=== PATIENT | female | born 1985 | race Caucasian/White ===

== ENCOUNTER → 2024-07-12 16:54 | Outpatient (REF) | payer OTHER, SELFPAY | LOC: PNTC 16:54 | PROVIDERS: ATTENDING PHYSICIAN Obstetrics & Gynecology | DX: Z36.0 Encounter for antenatal screening for chromosomal anomalies (principal); Z36.82 Encounter for antenatal screening for nuchal translucency | CPT/HCPCS: 76801; 76813 ==

== ENCOUNTER → 2024-08-09 16:25 | Outpatient (REF) | payer OTHER, SELFPAY | LOC: PNTC 16:25 | PROVIDERS: ATTENDING PHYSICIAN Obstetrics & Gynecology | DX: O09.519 Supervision of elderly primigravida, unspecified trimester (principal); O09.819 Supervision of pregnancy resulting from assisted reproductive technology, unspecified trimester; O99.210 Obesity complicating pregnancy, unspecified trimester | CPT/HCPCS: 76805 ==

== ENCOUNTER → 2024-08-17 13:36 | Outpatient (REF) | payer OTHER, SELFPAY | LOC: PNTC 13:36 | PROVIDERS: ATTENDING PHYSICIAN Obstetrics & Gynecology | DX: O46.92 Antepartum hemorrhage, unspecified, second trimester (principal) | CPT/HCPCS: 76815 ==

== ENCOUNTER → 2024-09-07 15:56 | Outpatient (REF) | payer OTHER, SELFPAY | LOC: PNTC 15:56 | PROVIDERS: ATTENDING PHYSICIAN Obstetrics & Gynecology | DX: O09.529 Supervision of elderly multigravida, unspecified trimester (principal) | CPT/HCPCS: 76811; 76817 ==

== ENCOUNTER → 2024-10-28 16:21 | Outpatient (REF) | payer OTHER, SELFPAY | LOC: PNTC 16:21 | PROVIDERS: ATTENDING PHYSICIAN Obstetrics & Gynecology | DX: O09.529 Supervision of elderly multigravida, unspecified trimester (principal); O09.819 Supervision of pregnancy resulting from assisted reproductive technology, unspecified trimester; O99.210 Obesity complicating pregnancy, unspecified trimester | CPT/HCPCS: 76816 ==

== ENCOUNTER 2024-11-16 16:20 | Observation (INO) | payer OTHER, SELFPAY ==
[2024-11-16 12:42] LABS: Glucose - Point of Care 94 mg/dl (70-99)
[2024-11-16 12:45] VITALS: BP 123/81
[2024-11-16 12:56] VITALS: BMI 36.3
[2024-11-16 13:00] VITALS: BP 111/69
--- NOTE | 2024-11-16 13:41 | ED.GENMED ---
History of Present Illness
General
Chief Complaint: Fainting/Passed Out
Source: patient
Exam Limitations: none
Time Seen by Provider: 11/16/24 13:14
Nursing documentation reviewed up to this point in time: agreed with
History of Present Illness
History of Present Illness:
Patient is a 39-year-old at approximately 30 weeks gestation who presents to the emergency department following syncopal episode. Patient states that she was setting up for graduation at her school when a folding chair closed on her left thumb,
pinching the skin. She noted immediate pain in her left thumb and was walking to get some ice when she began feeling lightheaded & dizzy, as if she was going to pass out. Patient apparently than suffered a syncopal event falling forward slightly and
striking her nose on a metal fence. She is unsure if she fell onto her abdomen.
Patient reports feeling very nervous regarding the safety of the baby. However she denies any headache, neck pain, chest pain, or shortness of breath. She denies any abdominal pain, vaginal bleeding, or loss of fluids. She has no visual changes,
current lightheadedness/dizziness, or numbness/tingling in extremities.
Patient has a hx of 5 prior spontaneous abortions.
Past History
Past History
ED Past Medical History: None
ED Past Surgical History: Other
Social History
Tobacco: Non-smoker
Personal:
Living: with family
Employment: Other
Family History
Family History: Other
Review of Systems
Review of Systems
Allergies reviewed?: Yes
All Other Systems: ROS reviewed and negative except as documented in HPI and ROS
Phy Exam
Physical Exam
Physical Exam:
Vitals: Patient's vital signs are stable. Afebrile
General: Patient is well appearing, no acute distress
Skin: 0.5 cm laceration to nasal bridge.
Head: Normocephalic, atraumatic
Eyes: Sclera nonicteric. EOMs intact. No nystagmus.
Nose: Small laceration to nasal bridge, as above with mild reproducible tenderness. No evidence of septal hematoma or obvious nasal deformity.
Throat: Protecting airway
Neck: Normal ROM, no cervical spine tenderness, no meningismus
Cardiac: Regular rate and rhythm, no murmurs.
Pulm: Normal respiratory effort, no wheezes, rales, rhonchi heard on exam
.
Abdomen: Gravid abdomen. Soft and nontender.
Extremities: Edema and ecchymosis of left thumb with tenderness of phalanx and near MCP joint. No obvious deformity of left 1st digit. She has full ability to adduct/abduct left and flex/extend at IP and MCP joints. Capillary refill wnl.
Neuro: AAOx3. CN II-XII intact. No focal neurologic deficits. Fluid speach and steady gait.
Psychiatric: Normal affect.
Course
Orders/Labs/Results
Orders:
Orders
11/16/24 13:40
Electrocardiogram (*1) Urgent
Reason for Study: Syncope
11/16/24 13:41
EKG- Treatment ONCE
11/16/24 13:51
Fetaldex Urgent
Complete Blood Count/With Diff Urgent
Comprehensive Metabolic Panel Urgent
Fibrinogen Urgent
PTT Urgent
Prothrombin Time Urgent
11/16/24 15:04
Protein/Creat Ratio (Random) Urgent
Date Specimen was Collected: 11/16/24
Time Specimen was Collected: 14:55
11/16/24 15:18
Orthostatic VS- Treatment ONCE
11/16/24 15:34
0.9% Sodium Chloride 1000 ml [Nss] 1,000 ml IV BOLUS
11/16/24 15:55
Add On- LAB Urgent
Tests Added?: UA
Abnormal Lab Results
11/16/24
13:51
WBC 11.8 H 10^3/uL
(4.8-10.8)
RBC 4.04 L 10^6/uL
(4.20-5.40)
Hgb 11.5 L g/dL
(12.0-16.0)
Hct 35.2 L %
(37.0-47.0)
MCHC 32.7 L g/dL
(33.0-37.0)
MPV 10.7 H fL
(7.4-10.4)
Abs Immat Gran (auto) 0.2 H 10^3/uL
(0-0.05)
Absolute Neuts (auto) 9.8 H 10^3/uL
(1.4-6.5)
Absolute Lymphs (auto) 1.1 L 10^3/uL
(1.2-3.4)
Immature Gran % 2.0 H %
(0-0.5)
Neutrophils % 83.1 H %
(42.2-75.2)
Lymphocytes % 9.5 L %
(20.5-51.1)
Fibrinogen 675 H MG/DL
(199-459)
Chloride 108 H mmol/L
(98-107)
Glucose 108 H mg/dl
(70-99)
AST 137 H U/L
(14-36)
ALT 335 H U/L
(0-35)
Alkaline Phosphatase 169 H U/L
(38-126)
11/16/24 13:51
11/16/24 13:51
Vital Signs
Initial and Last Documented VS:
Initial Vital Signs
Temp Pulse Resp BP Pulse Ox
98.2 F 84 20 123/81 100
11/16/24 12:45 11/16/24 12:45 11/16/24 12:45 11/16/24 12:45 11/16/24 12:45
Last Documented Vital Signs
Temp Pulse Resp BP Pulse Ox
98.4 F 76 18 120/72 98
11/16/24 16:36 11/16/24 16:36 11/16/24 16:36 11/16/24 16:36 11/16/24 15:15
Procedures
Laceration Closure
Nasal bridge:
Status of Wound: clean
Size of Wound in cm: 0.5
Description of Wound Edges: surrounded by abrasion
Preparation: cleaned with saline
Revision/Debridement: routine- no revision
Wound exploration: explored to base- no FB
Type of Closure: Dermabond-skin glue
MDM/Problems Addressed
Differential Diagnosis Includes:
Not limited to: vasovagal syncope, orthostatic hypotension, cardiac arrhythmia, placental abruption, preeclampsia, eclampsia, etc
MDM/Problems Addressed:
39 y.o at approximately 30 weeks gestation presenting following syncopal event after minor injury to left hand. She sustained small laceration to her nasal bridge and a contusion to left thumb. Unsure if there was any abdominal trauma although
she denies any abdominal pain, vaginal bleeding or loss of fluids. heart tones obtained in triage, as well as INSTRUCTIONAL DESIGNER consult.
Vitals and exam as above. Patient A&O x 3. Minor laceration to nasal bridge noted which was irrigated with nss and closed using dermabond. No other evidence of head or neck trauma. Left thumb with obvious ecchymosis and edema although no obvious
deformity w/ excellent ROM. RUE neurovascularly intact. No other evidence of extremity injuries. Gravid abdomen, soft and nontender. No neuro deficits noted.
Overall impression is likely vasovagal syncope secondary to pain from minor hand injury. Patient was found to be mildly orthostatic, so orthostasis would also be a consideration. Do not feel CT imaging of head indicated. Patient declines tdap
booster - aware of risks. Discussed xray of left thumb to rule out potential fx although patient declines and will continue to monitor. She is aware that we may be missing fx by holding off on xray imaging. Patient give IVF. Sent for OB US and
attached to monitorign in ED.
Labs sent in triage, as ordered by OBGYN. CBC noted. Chemistry reveals somewhat remarkably elevated transaminases. Patient does report recent pruritus of hands/feet - cholestasis of may be on differential although unable to exclude
abnormal presentation of preeclampsia. Patient normotensive at this time. Discussed w/ OBKEL, Dr. Orellana who was down to evaluate pt at bedside. Per INSTRUCTIONAL DESIGNER - US reassuring and monitoring normal. Given abnormal LFTs and positive KB screen,
patient will be admitted overnight for continued monitoring, further workup. Patient accepted to OBGYN service in stable condition and transferred to [facility].
Chronic conditions affecting care:
Hx multipe spontaneous miscarriages
Acute Exacerbation and/or Progression of Chronic Illness:
N/A
*Pulse Oximetry
Patient hypoxic: no
*EKG
Interpreted by ED Provider?: Yes
EKG Intrepretation Date: 11/16/24
Interpretation: normal
Comparison EKG: no comparison EKG present
Heart Rate: 73
Rate: normal
Rhythm: sinus
[place]: normal axis
Interval: normal QT interval
QRS Pattern: normal QRS
Ischemia: no ischemia
*[employer] Specialist Interpretation
Rate: normal
Interpretation: normal
Heart Rate: 80
Rhythm: sinus
*Critical Care Note
Total Time (30-74mins, 75-104mins- exclusive of procedures): Not Applicable
Patient Management
Discussion with other providers: [employer] (Case discussed w/ OBKEL)
Escalation/DeEscalation of care consider admission/obs:
Admit to [facility] for monitoring
ED Attending Note
-
Portions of this chart may have been created with voice recognition software.� Occasional wrong word or��sound alike� substitutions may have occurred due to the inherent limitations of voice recognition software.
Discharge Plan
Departure
Patient Disposition: [facility]
Date of Disposition: 11/16/24
Time of Disposition: 16:01
Admit to doctor: Dr. Orellana
Presentation/result/management discussed w/ accepting MD/DO: OBGYN
Discharge Problem:
Vasovagal syncope, Laceration of nose, Injury of left thumb
Interventions
Interventions:
*Risk Screen - Suicide Last Done: 11/16/24 12:45
*General Assessment Last Done: 11/16/24 12:45
*Neglect/Abuse Screening Last Done: 11/16/24 12:56
*ED- Fall Risk Assessment Last Done: 11/16/24 12:56
*ED COVID-19 Vaccine History Last Done: 11/16/24 12:56
*Nursing Disposition Last Done: 11/16/24 16:06
ED- Cardiac Assessment Last Done: 11/16/24 12:56
ED- Neurological Assessment Last Done: 11/16/24 12:56
Discharge Date and Time
Discharge Date/Time: 11/16/24 16:10
[2024-11-16 14:00] VITALS: BP 110/76
[2024-11-16 14:19] LABS: % Basophils 0.3 % (0-2); % Eosinophils 0.3 % (0-6); % Lymphocytes 9.5 % (20.5-51.1); % Monocytes 4.8 % (1.7-9.3); % Neutrophils 83.1 % (42.2-75.2); Absolute Immature Granulocytes 0.2 10^3/uL (0-0.05); Absolute Lymphocytes 1.1 10^3/uL (1.2-3.4); Absolute Monocytes 0.6 10^3/uL (0.1-0.6); Absolute Neutrophils 9.8 10^3/uL (1.4-6.5); Hematocrit 35.2 % (37.0-47.0); Hemoglobin 11.5 g/dL (12.0-16.0); Mean Corp Hgb Conc. 32.7 g/dL (33.0-37.0); Mean Corpuscular Hgb 28.5 pg (27.0-31.0); Mean Corpuscular Volume 87.1 fL (81.0-99.0); Mean Platelet Volume 10.7 fL (7.4-10.4); Nucleated Red Blood Cells % 0 %; Platelet Count 275 10^3/uL (130-400); Red Blood Cell Count 4.04 10^6/uL (4.20-5.40); Red Cell Dist. Width 14.3 % (11.5-14.5); White Blood Cell Count 11.8 10^3/uL (4.8-10.8)
[2024-11-16 14:23] LABS: INR 0.87; PT 12.2 Sec (11.4-14.6)
[2024-11-16 14:24] LABS: APTT 30.2 Sec (23.4-35.0); Fibrinogen 675 MG/DL (199-459)
[2024-11-16 14:32] LABS: ALT (SGPT) 335 U/L (0-35); AST (SGOT) 137 U/L (14-36); Albumin 3.6 g/dl (3.5-5.0); Alkaline Phosphatase 169 U/L (38-126); Blood Urea Nitrogen 8 mg/dl (7-17); Calcium 9.8 mg/dl (8.4-10.2); Carbon Dioxide 22 mmol/L (22-30); Chloride 108 mmol/L (98-107); Estimated Creatinine Clearance > 125 ml/min; Glucose 108 mg/dl (70-99); Potassium 4.1 mmol/L (3.5-5.1); Sodium 138 mmol/L (135-145); Total Bilirubin 0.5 mg/dl (0.2-1.3); Total Protein 6.6 g/dl (6.3-8.2); eGFR > 60.00
[2024-11-16 15:09] VITALS: BP 109/73
[2024-11-16 15:27] VITALS: BP 111/72; BP 113/74; BP 127/84; PULSE 102; PULSE 63; PULSE 85
[2024-11-16 15:38] LABS: Protein/creatinine Ratio 0.8; Urine Protein 16 mg/dl
[2024-11-16] MEDS: NSS 1000 IV (15:38)
[2024-11-16 16:36] VITALS: BP 120/72
[2024-11-16] MEDS: CELESTONE SOLUSPAN 2 MG IM (17:34)
[2024-11-16 20:26] LABS: Hematocrit 30.9 % (37.0-47.0); Hemoglobin 10.5 g/dL (12.0-16.0); Mean Corpuscular Hgb 29.2 pg (27.0-31.0); Mean Corpuscular Volume 86.1 fL (81.0-99.0); Mean Platelet Volume 10.7 fL (7.4-10.4); Platelet Count 251 10^3/uL (130-400); Red Blood Cell Count 3.59 10^6/uL (4.20-5.40); Red Cell Dist. Width 14.4 % (11.5-14.5); White Blood Cell Count 11.5 10^3/uL (4.8-10.8)
[2024-11-16 20:48] LABS: ALT (SGPT) 309 U/L (0-35); AST (SGOT) 148 U/L (14-36); Albumin 3.2 g/dl (3.5-5.0); Alkaline Phosphatase 152 U/L (38-126); Blood Urea Nitrogen 7 mg/dl (7-17); Calcium 9.4 mg/dl (8.4-10.2); Carbon Dioxide 19 mmol/L (22-30); Chloride 111 mmol/L (98-107); Estimated Creatinine Clearance > 125 ml/min; Glucose 165 mg/dl (70-99); Sodium 136 mmol/L (135-145); Total Bilirubin 0.6 mg/dl (0.2-1.3); eGFR > 60.00
[2024-11-16] MEDS: LR 1000 IV (23:25)
[2024-11-17] MEDS: SYNTHROID 125 MCG PO (06:24)
[2024-11-17 06:58] LABS: Hemoglobin 10.5 g/dL (12.0-16.0); Mean Corp Hgb Conc. 32.8 g/dL (33.0-37.0); Mean Corpuscular Hgb 28.5 pg (27.0-31.0); Mean Corpuscular Volume 86.7 fL (81.0-99.0); Mean Platelet Volume 10.9 fL (7.4-10.4); Platelet Count 254 10^3/uL (130-400); Red Blood Cell Count 3.69 10^6/uL (4.20-5.40); Red Cell Dist. Width 14.3 % (11.5-14.5); White Blood Cell Count 12.9 10^3/uL (4.8-10.8)
[2024-11-17 07:17] LABS: ALT (SGPT) 354 U/L (0-35); AST (SGOT) 181 U/L (14-36); Albumin 3.2 g/dl (3.5-5.0); Alkaline Phosphatase 154 U/L (38-126); Blood Urea Nitrogen 8 mg/dl (7-17); Calcium 9.1 mg/dl (8.4-10.2); Carbon Dioxide 18 mmol/L (22-30); Chloride 113 mmol/L (98-107); Estimated Creatinine Clearance > 125 ml/min; Glucose 117 mg/dl (70-99); Potassium 4.3 mmol/L (3.5-5.1); Sodium 138 mmol/L (135-145); Total Bilirubin 0.6 mg/dl (0.2-1.3); Total Protein 6.1 g/dl (6.3-8.2); eGFR > 60.00
--- NOTE | 2024-11-17 15:24 | CON.GI ---
Addendum entered and electronically signed by Zen Irizarry DO 11/17/24 17:43:
I saw and examined the patient.
The SALESPERSON PARTS's note was reviewed and I agree with the note.
Ms Andujar is a pleasant 39 y.o female and currently approximately 30 weeks gestation who initially presented to the ED following a syncopal episode. She was found to have elevated LFTs and pruritus concerning for ICP for which
gastroenterology has been consulted.
Patient reports being in her usual state of health until earlier today when she was at school setting up for graduation when she subsequently felt lightheaded and dizzy as if she was going to pass out. She unfortunately hit her face against a metal
fence. She denies loss of consciousness or falling on her abdomen. Given the concern for the safety of her child, she came to the ER for further evaluation. Currently she reports feeling well and her recent has been uneventful up till
now. However, she does note she does note itchy palms as well as soles of her feet a few days ago which subsequently resolved. She denies any prior history of similar symptoms in the past. Of note, she does have a prior history of a total of 5
spontaneous abortions but otherwise denies any other significant medical history. She denies any personal history of liver disease, prior elevations in LFTs, family history of liver disease or personal history of hepatitis. No recent or new
medications Denies any history of alcohol abuse or illicit drug use. She denies any other changes in mental status, confusion, right upper quadrant abdominal pain, nausea/vomiting, bloody stools, or other symptoms to suggest clinical liver disease.
No other abdominal pain or discomfort and currently reports feeling well. Given the concern for pruritus, she had bile acids performed at her lab last week (still pending). Of note, previous HCV antibody was negative in the past.
Since her admission, she has remained afebrile and normotensive without tachycardia since her admission. Labs on 11/16/24 notable for AST 137, ALT 335, ALP 169, T Bili 0.5, and albumin 3.6. CBC with WBC 11.8, Hgb 11.5, and plts 275. INR 0.87. An
Abdominal US has been ordered.
#Acute, Hepatocellular-mediated Liver Injury
#Pruritus (Palms/Soles)
#Syncopal Episode
#Hx of Prior Spontaneous Abortions
Impression: Patient with recent syncopal episode along with pruritus several days earlier found to have elevated liver function tests with predominant elevations in her transaminases concerning for acute hepatocellular mediated liver injury. The
etiology is highly suspicious for underlying intrahepatic cholestasis of (ICP) given her pruritus and elevated LFTs. Although she did suffer from a syncopal episode, doubt underlying shock liver/ischemic hepatitis given the pattern of
injury as would expect her AST/ALT to improve as she has been normotensive here and would expect higher elevations in her transaminases on admission (ie 1000s). Furthermore, given her pruritus (although now resolved) a few days earlier highly
suspicious for underlying ICP resulting in her elevated transaminases. She denies any prior history of liver disease or family history of liver disease or alcohol use. She has no other symptoms to suggest decompensated liver disease making AFLP
much less likely and is without signs of synthetic dysfunction. She is without any evidence of hemolysis or thrombocytopenia making HELLP syndrome much less likely or other symptoms to suggest severe preeclampsia. Prior HBsAg (-) along with HCV Ab
(-) as chronic HCV has been associated with ICP.
Pending results of her abdominal US, favor treatment with UDCA as this has been shown to reduce spontaneous , relief of pruritus and is generally well-tolerated. Although we do not yet have her total serum bile acids, treatment can be
initiated empirically or could be started pending the measurement of her total bile acids. Furthermore, given her prior history of multiple spontaneous abortions favor empiric treatment with UDCA as this has been shown to potentially reduce the
risk of although not stillbirth. However, this has been shown to improve maternal symptoms as well as liver function tests as well. Could consider measuring total serum bile acids as often as weekly but defer to MFM/OBGYN in regards
to monitoring her total bile acid concentration as concentrations > 100 would warrant earlier delivery (ie specifically at 36 weeks). Ultimately, defer to maternal- medicine as well as her bile acid measurement to determine the time of
delivery.
For now, would obtain an abdominal US to rule out any extrahepatic biliary obstruction (although doubt clinically) along with repeating an INR and viral hepatitis testing including HEV. If her abdominal US is reassuring and acute viral hepatitis
has been ruled out, would favor starting therapy with Ursodiol at 10-15 mg/kg (favor Ursodiol 500 mg BiD based on weight) per day given the suspicion for her ICP while awaiting her total bile acids. Agree with ongoing supportive care as per primary
LABORER CUTTING TOOL team as well as maternal- medicine.
See rest of care as outlined below. GI will continue to follow. Please call with any questions or concerns.
Original Note:
Consultation
-
Date/Time Consultation Requested: 11/17/24 1500
Date/Time Consultation Performed: 11/17/24 1530
Requesting Provider: Basilia Howell MD
Performing Provider: JASMYNE Meneses, Deysi Renee MD
Reason for Consultation: increased LFT's
Medical History
Chief Complaint / HPI
Chief Complaint: increased LFT's
History of Present Illness:
Pt is a 39yo with hx hypothyroidism with 5 prior pregnancies with miscarriages and now 3 IVF's and currently 30 weeks . She was noted syncopal episode 11/16 while setting up for graduation. She pinched per finger in a folding chair with
bruising then proceeded to hit per face on a metal fence falling forward with bruise in lip and face. On admission hbg 11.5, WBC 11,800, platelets 275 with bili 0.5, AST 137, ALT 335, alk phos 169, with INR 0,87. In review with patient no
history of liver issues. No prior hepatitis, family hx liver issues, IVDA, ETOH abuse, or old tattoos. She admits to itching on palms and feet last weekend. She admits to nausea with first trimester but improved symptoms. She denies odynophagia,
GERD, vomiting, abdominal pain, diarrhea, constipation , or change in stool or urine color. Pt report prior hepatitis testing has been negative and bile acid testing was sent to [facility] last week.
Past Medical History
Past Medical History: Hypothyroidism and Other (current 6th pregnancies with multiple miscarriages and 3rd IVF)
Social History
Tobacco: Non-Smoker
Alcohol: None
Drug: None
Personal:
Living: With Family
Employment: Employed
Family History
Family History: Other (no family history of liver problems)
Allergies / Home Medications
Allergy/AdvReac Type Severity Reaction Status Date / Time
Penicillins Allergy Unknown Verified 11/16/24 12:48
�Medication �Instructions �Recorded
aspirin 81 mg chewable tablet 1 tab PO DAILY 11/16/24
levothyroxine 125 mcg capsule 125 mcg PO DAILY 11/16/24
progesterone PO HS 11/16/24
Review of Systems
-
History Source: Patient
Constitutional: Reports Weight Gain ( about 20-30 lbs with )
EENT: Reports No Symptoms
Respiratory: Reports No Symptoms
Cardiac: Reports No Symptoms
Abdomen/GI: Reports No Symptoms
: Reports No Symptoms
Musculoskeletal: Reports Other (bruising hand with recent accident with chair )
Skin: Reports Other (redness with face with recent sunburn)
Neurological: Reports Weakness
Endocrine: Reports No Symptoms
Hematologic/Lymphatic: Reports No Symptoms
Vital Signs
Temp Pulse Resp BP Pulse Ox
98.4 F 76 18 120/72 98
11/16/24 16:36 11/16/24 16:36 11/16/24 16:36 11/16/24 16:36 11/16/24 15:15
Physical Exam
Exam
General: Well Developed, Well Nourished and No Apparent Distress
HEENT: Normocephalic and Anicteric
Respiratory: Clear
Cardiac: Regular Rhythm
GI: Soft, Non Tender and Distended (with pregancy )
Musculoskeletal: No Clubbing and No Cyanosis
Skin: Warm and Dry
Neuro: Awake, Alert and AO x 3
Psych: Calm
Results
WBC 12.9 10^3/uL (4.8-10.8) H 11/17/24 06:
Hgb 10.5 g/dL (12.0-16.0) L 11/17/24 06:
Hct 32.0 % (37.0-47.0) L 11/17/24 06:
MCV 86.7 fL (81.0-99.0) 11/17/24 06:
Plt Count 254 10^3/uL (130-400) 11/17/24 06:
Absolute Neuts (auto) 9.8 10^3/uL (1.4-6.5) H 11/16/24 13:51
PT 12.2 Sec (11.4-14.6) 11/16/24 13:51
INR 0.87 11/16/24 13:51
APTT 30.2 Sec (23.4-35.0) 11/16/24 13:51
Sodium 138 mmol/L (135-145) 11/17/24 06:
Potassium 4.3 mmol/L (3.5-5.1) 11/17/24 06:
Chloride 113 mmol/L (98-107) H 11/17/24 06:
Carbon Dioxide 18 mmol/L (22-30) L 11/17/24 06:
BUN 8 mg/dl (7-17) 11/17/24 06:
Creatinine 0.6 mg/dL (0.6-1.0) 11/17/24 06:
Calcium 9.1 mg/dl (8.4-10.2) 11/17/24 06:
Total Bilirubin 0.6 mg/dl (0.2-1.3) 11/17/24 06:
AST 181 U/L (14-36) H 11/17/24 06:26
ALT 354 U/L (0-35) H 11/17/24 06:
Alkaline Phosphatase 154 U/L (38-126) H 11/17/24 06:26
Diagnostic Image Results:
11/17 US pending to be done
Assessment / Plan
-
Pt is a 39yo with hx hypothyroidism with 5 prior pregnancies with miscarriages and now 3 IVF's and currently 30 weeks . She was noted syncopal episode 11/16 while setting up for graduation. She pinched per finger in a folding chair with
bruising then proceeded to hit per face on a metal fence falling forward with bruise in lip and face. On admission hbg 11.5, WBC 11,800, platelets 275 with bili 0.5, AST 137, ALT 335, alk phos 169, with INR 0,87. In review with patient no
history of liver issues. No prior hepatitis, family hx liver issues, IVDA, ETOH abuse, or old tattoos. She admits to itching on palms and feet last weekend. She admits to nausea with first trimester but improved symptoms. She denies odynophagia,
GERD, vomiting, abdominal pain, diarrhea, constipation , or change in stool or urine color. Pt report prior hepatitis testing has been negative and bile acid testing was sent to [facility] last week.
-increased LFT's
-itching palms
-recent syncope with fall prior to admission
-current 30 week
-hx 5 prior miscarriages
-hypothyroidism
Laboratory Tests
11/16/24 11/16/24 11/17/24
13:51 20:13 06:26
PT 12.2
INR 0.87
Total Bilirubin 0.5 0.6 0.6
AST 137 H 148 H 181 H
ALT 335 H 309 H 354 H
Alkaline Phosphatase 169 H 152 H 154 H
PLAN:
Etiology of elevated LFT's with concern for intrahepatic cholestasis of , shock liver with fall but minimal elevated of LFT's vs other
denies abdominal pain and has had recent itching of palms and feet
platelet and INR normal, BP stable
await bile salt testing - sent 11/16 [facility]
agree with US
repeat hepatitis pending
cont to trend labs
will review with Dr. Irizarry for [facility] therapy pending work up above
support give as prolonged course for since 2017
-
-
Thank you for consultation and allowing me to participate in the patient's care. Please call the salesperson parts GI physician during the after hours with any questions or concerns.
[2024-11-17] MEDS: CELESTONE SOLUSPAN 2 MG IM (19:04)
[2024-11-18] MEDS: SYNTHROID 125 MCG PO (06:20)
[2024-11-18 06:23] LABS: Hematocrit 31.5 % (37.0-47.0); Hemoglobin 10.4 g/dL (12.0-16.0); Mean Corpuscular Hgb 28.8 pg (27.0-31.0); Mean Corpuscular Volume 87.3 fL (81.0-99.0); Mean Platelet Volume 10.7 fL (7.4-10.4); Platelet Count 249 10^3/uL (130-400); Red Blood Cell Count 3.61 10^6/uL (4.20-5.40); Red Cell Dist. Width 14.6 % (11.5-14.5); White Blood Cell Count 12.6 10^3/uL (4.8-10.8)
[2024-11-18 06:33] LABS: INR 0.85; PT 12.1 Sec (11.4-14.6)
[2024-11-18 06:51] LABS: ALT (SGPT) 437 U/L (0-35); AST (SGOT) 224 U/L (14-36); Albumin 3.2 g/dl (3.5-5.0); Alkaline Phosphatase 138 U/L (38-126); Blood Urea Nitrogen 9 mg/dl (7-17); Carbon Dioxide 19 mmol/L (22-30); Chloride 113 mmol/L (98-107); Estimated Creatinine Clearance > 125 ml/min; Glucose 127 mg/dl (70-99); Potassium 4.5 mmol/L (3.5-5.1); Sodium 139 mmol/L (135-145); Total Bilirubin 0.3 mg/dl (0.2-1.3); Total Protein 6.2 g/dl (6.3-8.2); eGFR > 60.00
[2024-11-18] MEDS: URSO 500 MG PO (08:10)
--- NOTE | 2024-11-18 14:24 | W.PN.GI.CBS2 ---
Today's Communication / Plan
-
started Ursodiol 500 mg bid
Assessment / Plan
-
Pt is a 39yo with hx hypothyroidism with 5 prior pregnancies with miscarriages and now 3 IVF's and currently 30 weeks . She was noted syncopal episode 11/16 while setting up for graduation. She pinched per finger in a folding chair with
bruising then proceeded to hit per face on a metal fence falling forward with bruise in lip and face. On admission hbg 11.5, WBC 11,800, platelets 275 with bili 0.5, AST 137, ALT 335, alk phos 169, with INR 0,87. In review with patient no
history of liver issues. No prior hepatitis, family hx liver issues, IVDA, ETOH abuse, or old tattoos. She admits to itching on palms and feet last weekend. She admits to nausea with first trimester but improved symptoms. She denies odynophagia,
GERD, vomiting, abdominal pain, diarrhea, constipation , or change in stool or urine color. Pt report prior hepatitis testing has been negative and bile acid testing was sent to [facility] last week.
-increased LFT's
-itching palms
-recent syncope with fall prior to admission
-current 30 week
-hx 5 prior miscarriages
-hypothyroidism
Laboratory Tests
11/16/24 11/16/24 11/17/24
13:51 20:13 06:26
PT 12.2
INR 0.87
Total Bilirubin 0.5 0.6 0.6
AST 137 H 148 H 181 H
ALT 335 H 309 H 354 H
Alkaline Phosphatase 169 H 152 H 154 H
PLAN:
Etiology of elevated LFT's most likely from ICP
Dr. Irizarry also discussed with Hepatology at [place] yesterday and [facility] Ursodiol
started on ursodiol 500 mg twice daily
Ultrasound without gallstones and normal liver
Okay for DC home today with close follow-up with her ELECTRONICS SPECIALIST
Bile acids results are pending
Follow-up with Dr. Irizarry in 2 to 4 weeks
Subjective
Subjective
Date of Service: November 18, 2024
no abdominal pain no pruritus no fever
Objective
Data Reviewed
Laboratory Data:
Laboratory Results
11/18/24 06:10
11/18/24 06:10
Laboratory Results
PT 12.1 Sec (11.4-14.6) 11/18/24 06:10
INR 0.85 11/18/24 06:10
APTT 30.2 Sec (23.4-35.0) 11/16/24 13:51
Total Bilirubin 0.3 mg/dl (0.2-1.3) 11/18/24 06:10
AST 224 U/L (14-36) H 11/18/24 06:10
ALT 437 U/L (0-35) H 11/18/24 06:10
Alkaline Phosphatase 138 U/L (38-126) H 11/18/24 06:10
11/18/24 US
IMPRESSION:
Unremarkable sonographic appearance of the liver. No gallstones or bile duct dilatation.
Vital Signs and I&O:
Vital Signs
Temp Pulse Resp BP Pulse Ox
98.4 F 76 18 120/72 98
11/16/24 16:36 11/16/24 16:36 11/16/24 16:36 11/16/24 16:36 11/16/24 15:15
Physical Exam
Physical Exam
Cardiology: Normal Sinus Rhythm
Pulmonary: Clear
GI: Soft, Non Tender, Normal Bowel Sounds and Other (Gravid uterus)
[2024-11-18 19:42] LABS: Hepatitis C Antibody Negative (Negative)
[2024-11-18 20:55] LABS: Hepatitis A IgM Antibody Negative (Negative); Hepatitis B Core Ab, IgM Negative (Negative)
== END 2024-11-18 09:55 | disposition home or self-care (01) ==
LOC: LDRP 16:20
PROVIDERS: Emergency Medicine; Nurse Practitioner Adult Health; Obstetrics & Gynecology; ADMITTING PHYSICIAN Student in an Organized Health Care Education/Training Program; EMERGENCY PHYSICIAN Emergency Medicine; FAMILY PHYSICIAN Family Medicine
DX: O9A.213 Injury, poisoning and certain other consequences of external causes complicating pregnancy, third trimester (principal); R55 Syncope and collapse; Z3A.30 30 weeks gestation of pregnancy; S01.21XA Laceration without foreign body of nose, initial encounter; W18.39XA Other fall on same level, initial encounter; Y93.01 Activity, walking, marching and hiking; Y92.219 Unspecified school as the place of occurrence of the external cause; Y99.0 Civilian activity done for income or pay; O09.523 Supervision of elderly multigravida, third trimester; O09.813 Supervision of pregnancy resulting from assisted reproductive technology, third trimester; O09.293 Supervision of pregnancy with other poor reproductive or obstetric history, third trimester; O26.23 Pregnancy care for patient with recurrent pregnancy loss, third trimester; S60.012A Contusion of left thumb without damage to nail, initial encounter; W22.8XXA Striking against or struck by other objects, initial encounter; W23.0XXA Caught, crushed, jammed, or pinched between moving objects, initial encounter; O99.283 Endocrine, nutritional and metabolic diseases complicating pregnancy, third trimester; E03.9 Hypothyroidism, unspecified; R94.31 Abnormal electrocardiogram [ECG] [EKG]; R74.01 Elevation of levels of liver transaminase levels; L29.9 Pruritus, unspecified; Z79.82 Long term (current) use of aspirin; Z79.890 Hormone replacement therapy; Z88.0 Allergy status to penicillin
CPT/HCPCS: 12011; 76700; 80053; 80076; 82570; 82962; 84156; 85025; 85027; 85384; 85460; 85610; 85730; 86705; 86709; 86803; 86850; 86900; 86901; 93005; 96360; 99285; G0378

== ENCOUNTER → 2024-11-25 09:24 | Outpatient (REF) | payer OTHER, SELFPAY ==
[2024-11-25 10:54] LABS: % Basophils 0.2 % (0-2); % Eosinophils 0.8 % (0-6); % Immature Granulocytes 1.1 % (0-0.5); % Lymphocytes 22.7 % (20.5-51.1); % Monocytes 6.4 % (1.7-9.3); % Neutrophils 68.8 % (42.2-75.2); Absolute Eosinophils 0.1 10^3/uL (0-0.7); Absolute Immature Granulocytes 0.1 10^3/uL (0-0.05); Absolute Lymphocytes 2.1 10^3/uL (1.2-3.4); Absolute Monocytes 0.6 10^3/uL (0.1-0.6); Absolute Neutrophils 6.4 10^3/uL (1.4-6.5); Hemoglobin 11.8 g/dL (12.0-16.0); Mean Corp Hgb Conc. 33.7 g/dL (33.0-37.0); Mean Corpuscular Hgb 28.9 pg (27.0-31.0); Mean Corpuscular Volume 85.8 fL (81.0-99.0); Mean Platelet Volume 11.4 fL (7.4-10.4); Nucleated Red Blood Cells % 0 %; Platelet Count 223 10^3/uL (130-400); Red Blood Cell Count 4.08 10^6/uL (4.20-5.40); Red Cell Dist. Width 15.1 % (11.5-14.5); White Blood Cell Count 9.3 10^3/uL (4.8-10.8)
[2024-11-25 10:56] LABS: Urine Albumin Negative (Neg - Trace); Urine Bilirubin Negative (Negative); Urine Character Clear (Clear); Urine Color Yellow; Urine Glucose Negative (Negative); Urine Ketone Negative (Negative); Urine Leukocyte Negative (Negative); Urine Nitrite Negative (Negative); Urine Occult Blood Negative (Negative); Urine Urobilinogen Negative (Neg - 1+); Urine pH 6.5 (5.0-9.0)
[2024-11-25 11:14] LABS: Protein/creatinine Ratio 0.4; Urine Protein 14 mg/dl
[2024-11-25 11:22] LABS: ALT (SGPT) 91 U/L (0-35); AST (SGOT) 27 U/L (14-36); Albumin 3.6 g/dl (3.5-5.0); Alkaline Phosphatase 126 U/L (38-126); Blood Urea Nitrogen 10 mg/dl (7-17); Calcium 9.8 mg/dl (8.4-10.2); Carbon Dioxide 18 mmol/L (22-30); Chloride 110 mmol/L (98-107); Glucose 106 mg/dl (70-99); Potassium 4.3 mmol/L (3.5-5.1); Sodium 136 mmol/L (135-145); Total Bilirubin 0.5 mg/dl (0.2-1.3); Total Protein 6.7 g/dl (6.3-8.2); eGFR > 60.00
[2024-11-27 13:08] LABS: Bile Acids (Cholylglycine) 19 umol/L (0-10)
== END ==
LOC: PNTC 09:24
PROVIDERS: ATTENDING PHYSICIAN Obstetrics & Gynecology
DX: O13.9 Gestational [pregnancy-induced] hypertension without significant proteinuria, unspecified trimester (principal)
CPT/HCPCS: 76815; 80053; 81003; 82239; 82570; 84156; 85025

== ENCOUNTER → 2024-12-02 09:36 | Outpatient (REF) | payer OTHER, SELFPAY ==
[2024-12-02 12:28] LABS: Urine Albumin Negative (Neg - Trace); Urine Bilirubin Negative (Negative); Urine Character Clear (Clear); Urine Color Yellow; Urine Glucose Negative (Negative); Urine Ketone Negative (Negative); Urine Leukocyte Negative (Negative); Urine Nitrite Negative (Negative); Urine Occult Blood Negative (Negative); Urine Specific Gravity 1.015 (<1.030); Urine Urobilinogen Negative (Neg - 1+)
[2024-12-02 12:56] LABS: % Basophils 0.3 % (0-2); % Immature Granulocytes 1.1 % (0-0.5); % Monocytes 6.3 % (1.7-9.3); % Neutrophils 68.3 % (42.2-75.2); Absolute Eosinophils 0.1 10^3/uL (0-0.7); Absolute Immature Granulocytes 0.1 10^3/uL (0-0.05); Absolute Lymphocytes 2.1 10^3/uL (1.2-3.4); Absolute Monocytes 0.6 10^3/uL (0.1-0.6); Absolute Neutrophils 6.3 10^3/uL (1.4-6.5); Hemoglobin 11.7 g/dL (12.0-16.0); Mean Corp Hgb Conc. 32.5 g/dL (33.0-37.0); Mean Corpuscular Hgb 28.5 pg (27.0-31.0); Mean Corpuscular Volume 87.6 fL (81.0-99.0); Mean Platelet Volume 11.9 fL (7.4-10.4); Nucleated Red Blood Cells % 0 %; Platelet Count 188 10^3/uL (130-400); Red Blood Cell Count 4.11 10^6/uL (4.20-5.40); Red Cell Dist. Width 15.9 % (11.5-14.5); White Blood Cell Count 9.2 10^3/uL (4.8-10.8)
[2024-12-02 13:14] LABS: ALT (SGPT) 37 U/L (0-35); AST (SGOT) 27 U/L (14-36); Albumin 3.5 g/dl (3.5-5.0); Alkaline Phosphatase 113 U/L (38-126); Blood Urea Nitrogen 9 mg/dl (7-17); Calcium 9.6 mg/dl (8.4-10.2); Carbon Dioxide 17 mmol/L (22-30); Chloride 111 mmol/L (98-107); Glucose 85 mg/dl (70-99); Potassium 4.4 mmol/L (3.5-5.1); Sodium 138 mmol/L (135-145); Total Bilirubin 0.4 mg/dl (0.2-1.3); Total Protein 6.4 g/dl (6.3-8.2); eGFR > 60.00
[2024-12-02 13:40] LABS: Protein/creatinine Ratio 0.2; Urine Protein 13 mg/dl
[2024-12-04 17:28] LABS: Bile Acids (Cholylglycine) 10 umol/L (0-10)
== END ==
LOC: PNTC 09:36
PROVIDERS: Obstetrics & Gynecology; ATTENDING PHYSICIAN Obstetrics & Gynecology
DX: O09.529 Supervision of elderly multigravida, unspecified trimester (principal); O09.819 Supervision of pregnancy resulting from assisted reproductive technology, unspecified trimester; O99.210 Obesity complicating pregnancy, unspecified trimester
CPT/HCPCS: 36415; 59025; 76816; 80053; 81003; 82239; 82570; 84156; 85025

== ENCOUNTER → 2024-12-09 09:51 | Outpatient (REF) | payer OTHER, SELFPAY ==
[2024-12-09 10:20] LABS: Urine Albumin 1+ (Neg - Trace); Urine Bilirubin Negative (Negative); Urine Character Slightly Cloudy (Clear); Urine Color Yellow; Urine Glucose Negative (Negative); Urine Ketone Negative (Negative); Urine Leukocyte Negative (Negative); Urine Nitrite Negative (Negative); Urine Occult Blood Negative (Negative); Urine Specific Gravity 1.015 (<1.030); Urine Urobilinogen Negative (Neg - 1+)
[2024-12-09 10:23] LABS: % Basophils 0.4 % (0-2); % Eosinophils 1.1 % (0-6); % Immature Granulocytes 0.8 % (0-0.5); % Lymphocytes 26.2 % (20.5-51.1); % Monocytes 6.6 % (1.7-9.3); % Neutrophils 64.9 % (42.2-75.2); Absolute Eosinophils 0.1 10^3/uL (0-0.7); Absolute Immature Granulocytes 0.1 10^3/uL (0-0.05); Absolute Lymphocytes 2.4 10^3/uL (1.2-3.4); Absolute Monocytes 0.6 10^3/uL (0.1-0.6); Absolute Neutrophils 5.9 10^3/uL (1.4-6.5); Hematocrit 35.9 % (37.0-47.0); Hemoglobin 12.1 g/dL (12.0-16.0); Mean Corp Hgb Conc. 33.7 g/dL (33.0-37.0); Mean Corpuscular Hgb 29.4 pg (27.0-31.0); Mean Corpuscular Volume 87.1 fL (81.0-99.0); Mean Platelet Volume 11.5 fL (7.4-10.4); Nucleated Red Blood Cells % 0 %; Platelet Count 196 10^3/uL (130-400); Red Blood Cell Count 4.12 10^6/uL (4.20-5.40); Red Cell Dist. Width 16.2 % (11.5-14.5); White Blood Cell Count 9.1 10^3/uL (4.8-10.8)
[2024-12-09 10:58] LABS: Urine Amorphous Seen; Urine Squamous Cell >30 /LPF (Few)
[2024-12-09 11:00] LABS: Urine Red Blood Cell 0-2 /HPF (0-2); Urine White Cell 0-2 /HPF (0-5)
[2024-12-09 11:09] LABS: ALT (SGPT) 48 U/L (0-35); AST (SGOT) 34 U/L (14-36); Albumin 3.5 g/dl (3.5-5.0); Alkaline Phosphatase 115 U/L (38-126); Blood Urea Nitrogen 12 mg/dl (7-17); Calcium 9.8 mg/dl (8.4-10.2); Carbon Dioxide 18 mmol/L (22-30); Chloride 112 mmol/L (98-107); Glucose 95 mg/dl (70-99); Potassium 4.2 mmol/L (3.5-5.1); Sodium 139 mmol/L (135-145); Total Bilirubin 0.5 mg/dl (0.2-1.3); Total Protein 6.5 g/dl (6.3-8.2); eGFR > 60.00
[2024-12-09 22:18] LABS: Protein/creatinine Ratio 0.1; Urine Protein 8 mg/dl
[2024-12-12 09:40] LABS: Bile Acids (Cholylglycine) 15 umol/L (0-10)
== END ==
LOC: PNTC 09:51
PROVIDERS: Obstetrics & Gynecology; ATTENDING PHYSICIAN Obstetrics & Gynecology
DX: O99.210 Obesity complicating pregnancy, unspecified trimester (principal); O09.819 Supervision of pregnancy resulting from assisted reproductive technology, unspecified trimester; O09.529 Supervision of elderly multigravida, unspecified trimester
CPT/HCPCS: 36415; 59025; 76815; 80053; 81003; 81015; 82239; 82570; 84156; 85025

== ENCOUNTER → 2024-12-16 09:59 | Outpatient (REF) | payer OTHER, SELFPAY ==
[2024-12-16 10:42] LABS: Urine Character Clear (Clear)
[2024-12-16 10:57] LABS: Hematocrit 34.6 % (37.0-47.0); Hemoglobin 12.0 g/dL (12.0-16.0); Mean Corp Hgb Conc. 34.7 g/dL (33.0-37.0); Mean Corpuscular Volume 86.5 fL (81.0-99.0); Nucleated Red Blood Cells % 0 %; Platelet Count 190 10^3/uL (130-400); Red Cell Dist. Width 16.6 % (11.5-14.5)
[2024-12-16 11:12] LABS: ALT (SGPT) 43 U/L (0-35); AST (SGOT) 30 U/L (14-36); Albumin 3.5 g/dl (3.5-5.0); Alkaline Phosphatase 117 U/L (38-126); Blood Urea Nitrogen 9 mg/dl (7-17); Calcium 9.8 mg/dl (8.4-10.2); Carbon Dioxide 19 mmol/L (22-30); Chloride 110 mmol/L (98-107); Glucose 85 mg/dl (70-99); Potassium 4.5 mmol/L (3.5-5.1); Sodium 134 mmol/L (135-145); Total Protein 6.4 g/dl (6.3-8.2); eGFR > 60.00
[2024-12-18 16:43] LABS: Bile Acids (Cholylglycine) 16 umol/L (0-10)
== END ==
LOC: PNTC 09:59
PROVIDERS: ATTENDING PHYSICIAN Obstetrics & Gynecology
DX: O09.529 Supervision of elderly multigravida, unspecified trimester (principal); O99.210 Obesity complicating pregnancy, unspecified trimester; Z31.83 Encounter for assisted reproductive fertility procedure cycle
CPT/HCPCS: 36415; 59025; 76815; 80053; 81003; 82239; 82570; 84156; 85025

== ENCOUNTER → 2024-12-23 10:02 | Outpatient (REF) | payer OTHER, SELFPAY ==
[2024-12-23 11:06] LABS: Hematocrit 35.9 % (37.0-47.0); Hemoglobin 12.1 g/dL (12.0-16.0); Mean Corp Hgb Conc. 33.7 g/dL (33.0-37.0); Mean Corpuscular Volume 86.9 fL (81.0-99.0); Nucleated Red Blood Cells % 0 %; Platelet Count 183 10^3/uL (130-400); Red Cell Dist. Width 16.3 % (11.5-14.5)
[2024-12-23 11:28] LABS: Urine Character Clear (Clear)
[2024-12-23 11:29] LABS: ALT (SGPT) 36 U/L (0-35); AST (SGOT) 32 U/L (14-36); Albumin 3.6 g/dl (3.5-5.0); Alkaline Phosphatase 133 U/L (38-126); Blood Urea Nitrogen 12 mg/dl (7-17); Calcium 10.0 mg/dl (8.4-10.2); Carbon Dioxide 20 mmol/L (22-30); Chloride 108 mmol/L (98-107); Glucose 87 mg/dl (70-99); Potassium 4.5 mmol/L (3.5-5.1); Sodium 135 mmol/L (135-145); Total Protein 6.4 g/dl (6.3-8.2); eGFR > 60.00
[2024-12-23 13:21] LABS: Urine Squamous Cell 16-20 /LPF (Few)
[2024-12-23 13:22] LABS: Urine Red Blood Cell 0-2 /HPF (0-2)
[2024-12-25 13:20] LABS: Bile Acids (Cholylglycine) 16 umol/L (0-10)
== END ==
LOC: PNTC 10:02
PROVIDERS: ATTENDING PHYSICIAN Obstetrics & Gynecology
DX: O99.210 Obesity complicating pregnancy, unspecified trimester (principal); O09.529 Supervision of elderly multigravida, unspecified trimester; O09.819 Supervision of pregnancy resulting from assisted reproductive technology, unspecified trimester
CPT/HCPCS: 36415; 59025; 76815; 80053; 81003; 81015; 82239; 82570; 84156; 85025

== ENCOUNTER → 2024-12-30 09:59 | Outpatient (REF) | payer OTHER, SELFPAY ==
[2024-12-30 11:00] LABS: Hematocrit 35.2 % (37.0-47.0); Hemoglobin 11.8 g/dL (12.0-16.0); Mean Corp Hgb Conc. 33.5 g/dL (33.0-37.0); Mean Corpuscular Volume 89.1 fL (81.0-99.0); Nucleated Red Blood Cells % 0 %; Platelet Count 162 10^3/uL (130-400); Red Cell Dist. Width 16.5 % (11.5-14.5)
[2024-12-30 11:08] LABS: ALT (SGPT) 34 U/L (0-35); AST (SGOT) 26 U/L (14-36); Albumin 3.4 g/dl (3.5-5.0); Alkaline Phosphatase 131 U/L (38-126); Blood Urea Nitrogen 10 mg/dl (7-17); Calcium 9.7 mg/dl (8.4-10.2); Carbon Dioxide 19 mmol/L (22-30); Chloride 108 mmol/L (98-107); Glucose 109 mg/dl (70-99); Potassium 4.4 mmol/L (3.5-5.1); Sodium 133 mmol/L (135-145); Total Protein 6.3 g/dl (6.3-8.2); eGFR > 60.00
[2024-12-30 11:40] LABS: Urine Character Clear (Clear)
[2025-01-03 08:00] LABS: Bile Acids (Cholylglycine) 7 umol/L (0-10)
== END ==
LOC: PNTC 09:59
PROVIDERS: ATTENDING PHYSICIAN Obstetrics & Gynecology
DX: O99.210 Obesity complicating pregnancy, unspecified trimester (principal); O09.529 Supervision of elderly multigravida, unspecified trimester; O09.819 Supervision of pregnancy resulting from assisted reproductive technology, unspecified trimester
CPT/HCPCS: 36415; 59025; 76816; 80053; 81003; 82239; 82570; 84156; 85025

== ENCOUNTER 2025-01-03 19:53 | Inpatient (IN) | payer OTHER, SELFPAY ==
[2025-01-03 19:55] VITALS: BMI 37.1
[2025-01-03 20:42] LABS: Hematocrit 33.4 % (37.0-47.0); Hemoglobin 11.5 g/dL (12.0-16.0); Mean Corp Hgb Conc. 34.4 g/dL (33.0-37.0); Mean Corpuscular Volume 88.4 fL (81.0-99.0); Nucleated Red Blood Cells % 0 %; Platelet Count 161 10^3/uL (130-400); Red Cell Dist. Width 16.2 % (11.5-14.5)
[2025-01-03] MEDS: CYTOTEC 25 MICROGRAM VAG (20:46)
[2025-01-03 20:59] LABS: ALT (SGPT) 49 U/L (0-35); AST (SGOT) 44 U/L (14-36); Albumin 3.5 g/dl (3.5-5.0); Alkaline Phosphatase 138 U/L (38-126); Blood Urea Nitrogen 13 mg/dl (7-17); Calcium 9.3 mg/dl (8.4-10.2); Carbon Dioxide 17 mmol/L (22-30); Chloride 109 mmol/L (98-107); Estimated Creatinine Clearance > 125 ml/min; Glucose 132 mg/dl (70-99); Potassium 3.8 mmol/L (3.5-5.1); Sodium 134 mmol/L (135-145); Total Protein 6.3 g/dl (6.3-8.2); eGFR > 60.00
[2025-01-03 21:06] VITALS: BP 131/94
[2025-01-03] MEDS: URSO PO (22:17)
[2025-01-04] MEDS: CYTOTEC 50 MICROGRAM PO (00:57)
--- NOTE | 2025-01-04 02:25 | DOWNTIME ---
There was a [employer] Client [employer] Panel Installer Downtime on 01/04/2025 from 0100 to 01/04/2025 at 0220. Downtime documentation of patient's care, including medication administrations, has been reconciled in the electronic record per guidelines. Refer to the
patient's paper chart under the miscellaneous tab to see printed paper medication records and downtime forms.
[2025-01-04] MEDS: SYNTHROID 125 MCG PO (06:04)
[2025-01-04] MEDS: LR 1000 IV ×3 (07:02→20:02)
[2025-01-04] MEDS: CYTOTEC PO ×3 (07:02→20:01)
[2025-01-04] MEDS: URSO 500 MG PO ×2 (07:48→20:07)
[2025-01-04] MEDS: PITOCIN 30 UNITS/NSS 500 ML IV (13:46)
[2025-01-05] MEDS: CYTOTEC PO ×2 (05:59→19:27)
[2025-01-05] MEDS: SYNTHROID 125 MCG PO (06:36)
[2025-01-05] MEDS: URSO 500 MG PO (08:02)
[2025-01-05] MEDS: PITOCIN 30 UNITS/NSS 500 ML IV (18:15)
[2025-01-05] MEDS: LR 1000 IV (18:15)
[2025-01-05] MEDS: TYLENOL 975 MG PO (20:46)
[2025-01-05] MEDS: BICITRA 30 ML PO (20:47)
[2025-01-05] MEDS: ANCEF 10 IV (20:49)
[2025-01-05] MEDS: ZITHROMAX INFUSION 250 IV (20:49)
[2025-01-05] MEDS: URSO PO (22:57)
--- NOTE | 2025-01-06 00:42 | CON.HOSP ---
Consultation
-
Date/Time Consultation Requested: 01/06/2025 1221
Date/Time Consultation Performed: 01/06/2025 1242
Requesting Provider: Basilia Howell
Performing Provider: Vanessa Jack
Reason for Consultation: Bradycardia
Family Physician
-
Family Physician: INTERVIEWE UNKNOWN - PT NOT
Chief Complaint
-
Lightheadedness
History of Present Illness
This is a 39-year-old female with past medical history significant for hypothyroid who is postop day #0 status post for wound consult was called for episode of symptomatic bradycardia.
Patient had been undergoing a labor induction for the last 1 week. This induction was secondary to development of intrahepatic cholestasis that is of . However patient failed induction and was scheduled for today which was
performed without any complications. Patient had been on ursodiol for the cholestasis. She also reports no p.o. intake in the last 2 days.
After procedure the patient felt lightheaded. She reports mild nausea. Denies any vomiting. She denies any headache. She denied having any palpitations. She denies chest pain. According to family member at pulse have been mostly in the 50s in
the last 2 days. On telemetry she had a pulse in the 50s but also had PACs for which the consult was called.
Last vitals postoperatively showed a temp of 98, blood pressure of 117/74 with a pulse of 56 and she was satting 95% on room air. Preoperative labs showed unremarkable CBC. Electrolytes showed mild hyponatremia to 134 and a low bicarb of 17 likely
secondary to metabolic alkalosis and respiratory alkalosis in setting of .
Medical History
Past Medical History
Past Medical History: Reports Hypothyroidism
Past Surgical History: Reports Other
Social History
Tobacco: Non-smoker
Alcohol: None
Drug: None
Personal:
Living: With Family
Family History
Family History: Reviewed & Not Pertinent
Allergies / Home Medications
Allergies reflects when Allergies were last updated in [facility].
Home Medications with original date entered in [facility]
Allergy/Medication List:
Allergies
Allergy/AdvReac Type Severity Reaction Status Date / Time
No Known Allergies Allergy Verified 01/03/25 20:46
Home Medications
levothyroxine 125 mcg capsule 125 mcg PO DAILY Thyroid 11/16/24
aspirin 81 mg PO DAILY 01/03/25
ursodiol 500 mg PO BID 01/03/25
Review of Systems
-
History Source: Patient and Family
Constitutional: Reports No Symptoms
EENT: Reports No Symptoms
Respiratory: Reports No Symptoms
Cardiac: Reports No Symptoms
Abdomen/GI: Reports No Symptoms
: Reports No Symptoms
Musculoskeletal: Reports No Symptoms
Skin: Reports No Symptoms
Neurological: Reports Dizzy
Endocrine: Reports No Symptoms
Hematologic/Lymphatic: Reports No Symptoms
Psych: Reports No Symptoms
Physical Exam
Vital Signs
Vital Signs
Temp Pulse Resp BP Pulse Ox
97.8 F 101 18 131/94 100
01/03/25 21:06 01/03/25 21:06 01/03/25 21:06 01/03/25 21:06 01/03/25 21:06
Physical Exam
General: Well Developed, Well Nourished and No Apparent Distress
HEENT: Normocephalic, Moist Mucous Membranes and Atraumatic
Respiratory: Clear
Cardiac: S1/S2, Regular Rhythm and Peripheral Edema; Negative Murmur, Rub, JVD or HJR
GI: Soft, Non Tender, Non Distended and Normal Bowel Sounds
Rectal: Deferred by Provider
Musculoskeletal: No Clubbing, No Cyanosis and No Edema
Skin: Negative Rash
Neuro: Nonfocal/Grossly Intact
Laboratory Results
-
Laboratory Results
01/03/25 20:32
Total Bilirubin 0.5 mg/dl (0.2-1.3) 01/03/25 20:32
AST 44 U/L (14-36) H 01/03/25 20:32
ALT 49 U/L (0-35) H 01/03/25 20:32
Alkaline Phosphatase 138 U/L (38-126) H 01/03/25 20:32
Data Reviewed
-
Medical Tests (Nuc Med, Echo, EKG etc): Image personally visualized and interpreted
Lab Data: Labs Reviewed
Old Records: Reviewed
Impression / Plan
-
IMPRESSION:
Lightheadedness/dizziness postop day #0 status post . was without complications or any significant blood loss. Patient is on levothyroxine and has been taking that regularly. Suspect vasovagal episode with transient bradycardia
and PACs. Patient has chronic bradycardia with heart rates in the 50s for the last 24 to 48 hours according to family members patient states that her usual heart rates are in the 60s at baseline. It is not unusual to see occasional PACs in the
setting of bradycardia. The PACs did not imply arrhythmic tendency no ischemic tendency. Suspect vasovagal episode from nausea and not eating for several days. Patient has no prior history of heart disease. No known significant family history of
heart disease. She is not on any rate blocking agents. No significant medication interactions
PLAN:
Vasovagal episode
-Monitor on telemetry x 12 to 24 hours
-PACs not a concern, and can follow-up with outpatient PMD or cardiology
-If develops significant bradycardia with symptoms of hypotension, will likely respond to atropine but I do not think this is a concern at this time
-Routine vitals at least every 8 hours
-Continue levothyroxine
DVT prophylaxis�Per OB
CODE STATUS�full code
--- NOTE | 2025-01-06 01:46 | PTCARENOTE ---
This RN went to assess the pt. Pt placed on ekg monitor tech, for bradycardia. HR 44-55. Pt c/o no chest pain, SOB, lightheadedness or dizziness. Educated pt to let the nurse know if she has any symptoms.
[2025-01-06] MEDS: TORADOL 15 MG IV ×4 (04:05→22:32)
[2025-01-06 06:17] LABS: Hematocrit 33.6 % (37.0-47.0); Hemoglobin 11.6 g/dL (12.0-16.0); Mean Corp Hgb Conc. 34.5 g/dL (33.0-37.0); Mean Corpuscular Volume 87.7 fL (81.0-99.0); Platelet Count 158 10^3/uL (130-400); Red Cell Dist. Width 15.7 % (11.5-14.5)
[2025-01-06] MEDS: SYNTHROID 125 MCG PO (06:42)
--- NOTE | 2025-01-06 07:51 | W.PN.ANS.POP ---
Anesthesia Post Operative
- Anesthesia Post Op Note
Vital Signs Stable-See Nursing Note: Yes
Airway Patent: Yes
Adequate Pain Control: Yes
Change in Mental Status: No
Current Postoperative Nausea & Vomiting: No
Anesthesia Complications: No
General Anesthetic Recall: No
Unplanned Admission: No
Post Op Hydration Adequate: Yes
--- NOTE | 2025-01-06 08:19 | PTCARENOTE ---
Assessed patient A&Ox4, sitting in bed eating breakfast, at bedside, denied dizziness/lightheaded, denied pain throughout, on RA, clear lung sounds, NSR in the 60s, noted SB in 50s from previous shift.
--- NOTE | 2025-01-06 10:26 | CON.CAR ---
Addendum entered and electronically signed by Fran Herrera MD 01/06/25 13:54:
I saw and examined the patient independently.
The FOOT PRESS OPERATOR's note was reviewed and I agree with the note, with changes/additions as noted below.
Comment:
39 yo female with PMH of vasovagal syncope is admitted after C section. She had some dizziness yesterday, feels better today. We are consulted for bradycardia and PAC's. Exam with RRR, no murmurs, trace LE edema. Tele: SR/SB HR 45-65, occasional
PAC's.
Sinus neha, PAC's. I suspect this is an incidental finding. There are no arrhythmias on tele. Continue to monitor. Check echo for structural heart disease.
Dizziness. Seems improved. Sounds like orthostatic sxs post op. Tele and echo.
Original Note:
Consultation
Consultation Request
Date/Time Consultation Requested: 01/06/25 0834
Date/Time Consultation Performed: 01/06/25 1000
Requesting Provider: Dr. Majano
Performing Provider: Marisol MEDLEY for Dr. Herrera
Reason for Consultation: PAC's
Medical History
-
Chief Complaint: s/p
History of Present Illness:
39 y/o female with hypothyroidism and vasovagal syncope who is s/p last night. Afterward, she reports that while her new baby was getting hooked up to monitor and things were being explained to her, she felt light-headed and sweaty for
about 2 minutes. She did not pass out. On monitor, she is seen to have SB/SR and PAC's. No palpitations. Still feeling a little dizzy when getting up today, but has not been drinking much and also just had overnight.
Past Medical History
Past Medical History: Hypothyroidism and Other (as above)
Social History
Tobacco: Non-Smoker
Personal:
Family History
Family History: Reviewed & Not Pertinent
Allergies / Home Medications
Allergy/AdvReac Type Severity Reaction Status Date / Time
No Known Allergies Allergy Verified 01/03/25 20:46
�Medication �Instructions �Recorded �Confirmed �Type
levothyroxine 125 mcg capsule 125 mcg PO DAILY Thyroid 11/16/24 01/03/25 History
aspirin 81 mg PO DAILY 01/03/25 01/03/25 History
ursodiol 500 mg PO BID 01/03/25 01/03/25 History
Review of Systems
-
History Source: Patient
All other systems: Negative unless noted
Cardiac: Diaphoresis
Neurological: Dizzy
Physical Exam
Vital Signs
Temp Pulse Resp BP Pulse Ox
97.8 F 101 18 131/94 100
01/03/25 21:06 01/03/25 21:06 01/03/25 21:06 01/03/25 21:06 01/03/25 21:06
Lab Results
01/06/25 05:42
01/03/25 20:32
Physical Exam
General: Well Developed, Well Nourished and No Apparent Distress
HEENT: Normocephalic and Anicteric
Respiratory: Clear and Non Labored Respirations
Cardiac: Regular Rhythm
Musculoskeletal: No Edema
Skin: Warm and Dry
Neuro: AO x 3
Psych: Calm
Impression / Plan
-
s/p :
-gave to baby boy, who is currently in the NICU
-management per [employer]TER
Light-headedness/sweaty episode:
-patient has hx vasovagal syncope and reports her symptoms last night were immediately post when her baby was getting hooked up to monitor and things were being explained to her. Resolved after 2 minutes. In the past, she had syncope with
seeing blood (broke her thumb) and seeing needles (in-service in school at young age). There is classic prodrome. Likely mild vagal episode overnight- no syncope. Will obtain echo and monitor tele. So far, tele just shows mild SB, as well as SR with
PAC's. No concerning arrhythmias.
-now with walking a little dizzy, but s/p and working on intake now. Follow BP's.
Hypothyroidism:
-continue levothyroxine, per primary
Data Reviewed
-
EKG: Tracing Personally Visualized and interpreted (SB with SA)
Medical Tests (Nuc Med, Echo etc): Other (echo ordered)
Labs: Labs Reviewed by me
[2025-01-06] MEDS: COLACE 100 MG PO ×2 (10:49→22:32)
--- NOTE | 2025-01-06 10:55 | W.PN.HOSP.TC ---
Addendum entered and electronically signed by Citlali Kay MD 01/06/25 11:24:
Please call back with questions
Original Note:
Today's Communication/Plan
-
see A/P
Hospitalist service will sign off as cardiology team is now on board
Assessment / Plan
Assessment / Plan
39-year-old female with past medical history significant for hypothyroidism who is postop status post . Hospitalist consulted for episode of sinus bradycardia.
Patient had been undergoing labor induction for 1 week. This induction was secondary to development of intrahepatic cholestasis of . However patient failed induction and was scheduled for which was performed without any
complications. Patient had been on ursodiol for the cholestasis.
After procedure the patient felt lightheaded. She reported mild nausea. According to family member, her pulse have been mostly in the 50s in the last 2 days. On telemetry she had a pulse in the 50s but also had PACs for which the consult was
called.
A/P:
# Sinus bradycardia with PAC
# Vasovagal episode
PAC is not a concern, pt can follow-up with outpatient PMD or cardiology
Card was also consulted by OB, Card can decide if echo is needed or not
Continue levothyroxine
# Suspect reactive leucocytosis following OR/C section
DVT prophylaxis�Per OB
CODE STATUS�full code
Anticipated Discharge: 24 - 48 hours
Subjective/Interval History
-
Date of Service: January 06, 2025
Objective Data
-
Labs:
Laboratory Results
01/06/25
05:42
WBC 12.2 H
Hgb 11.6 L
Hct 33.6 L
Plt Count 158
Vital Signs:
Vital Signs
Temp Pulse Resp BP Pulse Ox
36.6 C 101 18 131/94 100
01/03/25 21:06 01/03/25 21:06 01/03/25 21:06 01/03/25 21:06 01/03/25 21:06
Review of Systems
-
History Source: Patient
All other systems: Reviewed and negative
Cardiac: Denies Chest Pain or Palpitations
Physical Exam
-
General: Well Developed, Well Nourished, No Apparent Distress, Comfortable and Conversant; Negative Respiratory Distress
HEENT: Normocephalic, Atraumatic, Nose Appears Normal and Ears Appear Normal; Negative Oxygen
Respiratory: Clear to Auscultation and Non Labored Respirations; Negative Accessory Resp Muscle Use
Cardiac: Regular Rhythm and S1/S2
GI: Soft, Nontender, Nondistended and Normal Bowel Sounds
Skin: Warm and Dry
Neuro: Awake, Alert, Oriented and AO x 3
Psych: Calm and Intact Judgement/Insight
Data Reviewed
-
Labs: Labs Reviewed by me
[2025-01-07] MEDS: SYNTHROID 125 MCG PO (04:34)
[2025-01-07] MEDS: MOTRIN 600 MG PO ×3 (04:34→20:29)
[2025-01-07] MEDS: TYLENOL 650 MG PO ×3 (04:35→20:28)
[2025-01-07 05:17] LABS: Hematocrit 32.6 % (37.0-47.0); Hemoglobin 11.0 g/dL (12.0-16.0); Mean Corp Hgb Conc. 33.7 g/dL (33.0-37.0); Mean Corpuscular Volume 89.8 fL (81.0-99.0); Platelet Count 153 10^3/uL (130-400); Red Cell Dist. Width 16.4 % (11.5-14.5)
[2025-01-07 05:41] LABS: Blood Urea Nitrogen 18 mg/dl (7-17); Calcium 9.0 mg/dl (8.4-10.2); Carbon Dioxide 23 mmol/L (22-30); Chloride 110 mmol/L (98-107); Estimated Creatinine Clearance > 125 ml/min; Glucose 85 mg/dl (70-99); Potassium 4.5 mmol/L (3.5-5.1); Sodium 136 mmol/L (135-145); eGFR > 60.00
--- NOTE | 2025-01-07 07:52 | PTCARENOTE ---
Assessed patient in room, arousable to voice from sleep, on RA, clear lung sounds, NSR in the 60s -70s on monitor, denied dizziness/lightheaded, denied pain throughout.
[2025-01-07] MEDS: COLACE 100 MG PO ×2 (08:19→20:29)
--- NOTE | 2025-01-07 11:38 | W.PN.CD ---
Today's Communication / Plan
-
no arrhythmia on tele, just rare PAC's; d/c tele
echo is normal
no additional cardiac testing or follow up is recommended
Impression / Plan
-
Dizziness, diaphoresis
-suspect post op orthostatic hypotension
-she feels back to baseline
-no arrhythmia on tele, just rare PAC's; d/c tele
-echo is normal
-no additional cardiac testing or follow up is recommended
s/p :
-stable
Hypothyroidism:
-continue levothyroxine, per primary team
Physical Exam
Vital Signs/Labs
Vital Signs
Temp Pulse Resp BP Pulse Ox
97.8 F 101 18 131/94 100
01/03/25 21:06 01/03/25 21:06 01/03/25 21:06 01/03/25 21:06 01/03/25 21:06
01/07/25 04:51
01/07/25 04:51
Physical Exam
Constitutional: No acute distress and Comfortable
EENT: Moist mucous membranes
Cardiovascular: Rhythm & rate is regular and Pedal edema present
Respiratory: Respiratory effort normal
Neuro/Psych: AO x 3
Data Reviewed
-
Date of Service: January 07, 2025
EKG: Other (Tele: SR/SB 50-80s, rare PAC's)
Echo: Report Reviewed by me (normal echo reviewed)
[2025-01-07 13:19] LABS: Syphilis/T. pallidum Ab Reflex Negative (Negative)
[2025-01-08] MEDS: MOTRIN 600 MG PO ×2 (04:35→11:19)
[2025-01-08] MEDS: TYLENOL 650 MG PO ×2 (04:36→11:19)
[2025-01-08] MEDS: SYNTHROID 125 MCG PO (06:00)
[2025-01-08] MEDS: COLACE 100 MG PO (08:40)
--- NOTE | 2025-01-08 11:42 | W.DS.TRANS ---
DC Summary - Vegetable Harvest Worker
-
Discharge Instructions:
Discharge Diagnosis/Procedures 37.5 wks, intrahepatic cholestasis of
; cervical ripening, failed induction
of labor. Primary LTCS
Diet No restrictions
Activity No strenuous activity
Driving Restrictions No driving for 2 weeks
Bathing Restrictions OK to Shower
Instructions:
Stand-Alone Forms: LDRP Delivery
Changes to Home Medications: No
Discharge Medications:
DC Medications w/original date entered in [facility]
levothyroxine 125 mcg capsule 125 mcg PO DAILY Thyroid 11/16/24
acetaminophen 325 mg tablet 650 mg (2 x 325 mg) PO Q4HPRN PRN mild pain #0 tabs 01/08/25
docusate sodium 100 mg capsule 100 mg PO BID #0 caps 01/08/25
ibuprofen 600 mg tablet 600 mg PO Q6HPRN PRN cramps #30 tabs 01/08/25
sennosides 8.6 mg tablet (Tanisha-mohit) 17.2 mg (2 x 8.6 mg) PO HSPRN PRN constipation #0 tabs 01/08/25
simethicone 80 mg chewable tablet 80 mg PO TIDPRN PRN flatulence #0 tabs 01/08/25
Home Medication Changes
Pending Results: Yes (placental path)
Additional Pending Results:
placenta path
Total time spent discharging patient (in min): 20
--- NOTE | 2025-01-08 13:28 | CM ---
CM received after-hours call from nursing regarding pt's PPD score
Bedside meeting with pt and spouse
Counseling resource lists provided to pt
She is well-versed in community counseling resources and has already placed a few calls to providers
She will outreach to [employer] to try to find in-network providers
No other dc needs noted
== END 2025-01-08 14:41 | disposition home or self-care (01) | DRG 787 ==
LOC: LDRP 19:53
PROVIDERS: Internal Medicine; Obstetrics & Gynecology; ADMITTING PHYSICIAN Obstetrics & Gynecology; CONSULT PHYSICIAN Internal Medicine; OTHER PHYSICIAN Internal Medicine
PROC: 3E0P7VZ Introduction of Hormone into Female Reproductive, Via Natural or Artificial Opening (ICD-10-PCS; 2025-01-03)
PROC: 0U7C7DJ Dilation of Cervix with Intraluminal Device, Temporary, Via Natural or Artificial Opening (ICD-10-PCS; 2025-01-04)
PROC: 10D00Z1 Extraction of Products of Conception, Low, Open Approach (ICD-10-PCS; 2025-01-05)
DX: O26.643 Intrahepatic cholestasis of pregnancy, third trimester (principal); E87.1 Hypo-osmolality and hyponatremia; E87.4 Mixed disorder of acid-base balance; K76.89 Other specified diseases of liver; Z3A.37 37 weeks gestation of pregnancy; Z37.0 Single live birth; R00.1 Bradycardia, unspecified; D72.829 Elevated white blood cell count, unspecified; O61.9 Failed induction of labor, unspecified; I95.1 Orthostatic hypotension; O99.284 Endocrine, nutritional and metabolic diseases complicating childbirth; E03.9 Hypothyroidism, unspecified; O99.214 Obesity complicating childbirth; F41.9 Anxiety disorder, unspecified; D25.2 Subserosal leiomyoma of uterus; O34.13 Maternal care for benign tumor of corpus uteri, third trimester; F32.A Depression, unspecified; O99.344 Other mental disorders complicating childbirth; N97.9 Female infertility, unspecified; O09.293 Supervision of pregnancy with other poor reproductive or obstetric history, third trimester; Z28.310 Unvaccinated for COVID-19; Z79.82 Long term (current) use of aspirin; Z79.890 Hormone replacement therapy
CPT/HCPCS: 80048; 80053; 85025; 85027; 86780; 86850; 86900; 86901; 88307; 93005; 93306